=== PATIENT | female | born 1985 | race Caucasian/White ===

== ENCOUNTER 2016-04-08 14:50 | Day surgery (SDC) | payer OTHER ==
[2016-04-08] MEDS ORDERED: Lactated Ringers 1,000 ML PRIMARY IV ONE (15:00)
[2016-04-08] MEDS ORDERED: LIDOCAINE W/ SODIUM BICARB 0.5 ML SYR ONE (15:00)
[2016-04-08] MEDS ORDERED: AMPICILLIN/SULBACTAM 3 GM VIAL IV ONE (15:00)
[2016-04-08] MEDS ORDERED: Sodium Chloride 0.9% 100 ML IV ONE (15:01)
[2016-04-08 15:20] VITALS: RESP 14
[2016-04-08] MEDS ORDERED: fentaNYL Inj 250 MCG/5 ML VIAL ONE (15:29)
[2016-04-08] MEDS ORDERED: MIDAZOLAM 5 MG/1 ML ONE (15:29)
[2016-04-08] MEDS ORDERED: KETAMINE 100 MG/1 ML - 5 ML ONE (15:29)
[2016-04-08] MEDS ORDERED: SUCCINYLCHOLINE CHLORIDE 20 MG/1 ML - 10 ML ONE (15:30)
[2016-04-08] MEDS ORDERED: ROCURONIUM 10 MG/1 ML - 5 ML VIAL IVP ONE (15:31)
[2016-04-08] MEDS ORDERED: LIDOCAINE MPF 2% - 5 ML (20 MG/1 ML) ONE ×2 (15:34→16:29)
[2016-04-08] MEDS ORDERED: BUPIVACAINE 0.5% W/ EPI - 10 ML VIAL ONE (15:38)
[2016-04-08] MEDS ORDERED: DEXAMETHASONE PF 10 MG/1 ML VIAL ONE (16:22)
[2016-04-08] MEDS ORDERED: KETOROLAC 30 MG/1 ML VIAL ONE (16:34)
--- NOTE | 2016-04-08 16:37 | GEN.OPNOTE ---
Operative Note Surgery Date: 04/08/16 Preoperative Diagnosis: Left axillary abscess. Postoperative Diagnosis: Deep left axillary abscess. Complex. Procedure: Incision and drainage of deep and complex left axillary abscess. Surgeon: Dave Hartley MD Anesthesia Provider: Lacie Dominguez CRNA Anesthesia Type: General Estimated Blood Loss (mL): 5 Fluids: 500 mL of crystalloid. 3 g of IV Unasyn at the start of the procedure. 30 mg of IV Toradol at the end of the procedure. Pathology: No specimen to pathology. Cultures were sent. Indications: Left axillary abscess. Findings: Tunneling left axillary abscess. 2 incisions were made and the cavities were connected Complications: None. Operative Summary: The patient was taken to the operating room and placed on an operating table in supine position. Her arm was placed out on an arm board. The axilla was prepped and draped in a sterile fashion. A surgical timeout was done. 2 incisions were made at each end of the abscess cavity. Hemostats were used to break down the loculations. The 2 incisions connected through the subcutaneous tissue. Cultures were taken. Both anaerobic and aerobic cultures were taken. Pulse lavage was used to irrigate out the wound cavities. 3 L of normal saline was used. Hemostasis was assured. 1 inch plain gauze was placed gently into each of the incisions. An appropriate dressing was placed. The patient tolerated all aspects of the procedure well without complication. She was taken to the recovery room in stable condition. All counts were correct. Follow-up will be in my office early next week. She will shower and remove the packing tomorrow. She will go home on pain medicines and antibiotics.
[2016-04-08] MEDS ORDERED: HYDROcodone/IBUPROFEN 7.5 MG/200 MG TABLET PO PRN (16:38)
[2016-04-08] MEDS ORDERED: Ondansetron ODT Tab 8 MG TAB PO PRN (16:42)
[2016-04-08] MEDS ORDERED: HYDROmorphone 2 MG/1 ML IVP PRN (16:42)
[2016-04-08] MEDS ORDERED: NORMAL SALINE 10 ML SYRINGE FLUSH IVP PRN (16:42)
[2016-04-08] MEDS ORDERED: fentaNYL Inj 100 MCG/2 ML VIAL IVP PRN (16:42)
[2016-04-08] MEDS ORDERED: ATROPINE SULFATE 0.4 MG/1 ML VIAL IVP PRN (16:42)
[2016-04-08] MEDS ORDERED: ONDANSETRON 4 MG/2 ML VIAL IVP PRN (16:42)
[2016-04-08 17:29] VITALS: TEMP 98.2
== END 2016-04-08 17:18 | disposition home or self-care (01) ==
LOC: SDSC 14:50
PROVIDERS: ATTEND Surgery
DX: L02.412 Cutaneous abscess of left axilla (principal)
CPT/HCPCS: 10061; 84703; 87070; 87075; 87077; 87186 ×2; 87205; J1885; J2704; J3010; J0295; J0330; J1100; J2001; J2250; J7050; J7120

== ENCOUNTER → 2016-05-28 | Outpatient (CLI) | payer OTHER | LOC: MOB LAB 14:49 | PROVIDERS: ATTEND Physician Assistant Medical | DX: L98.8 Other specified disorders of the skin and subcutaneous tissue (principal); Z22.322 Carrier or suspected carrier of Methicillin resistant Staphylococcus aureus | CPT/HCPCS: 87070; 87077; 87185; 87186; 87205 ==

== ENCOUNTER 2016-09-01 23:05 | Emergency (ER) | payer OTHER ==
[2016-09-01] MEDS ORDERED: Lidocaine 1% 10 MG/ML - 20 ML VIAL SUBCUT ONE (23:23)
[2016-09-01] MEDS ORDERED: Lidocaine Inj 1% 20 ML ONE (23:27)
[2016-09-01] MEDS ORDERED: HYDROcodone-APAP 5 MG -325 MG TABLET PO SCH (23:45)
[2016-09-02 01:08] VITALS: RESP 20; TEMP 98.4
--- NOTE | 2016-09-02 03:40 | PDOC ---
Skin Rash/Insect/Abscess HPI - General Chief Complaint: Integumentary Stated Complaint: ABSCESS UNDER LEFT ARM Date Seen by Provider: 09/01/16 Time Seen by Provider: 23:15 Source: POSITIVE: Patient Exam Limitations: POSITIVE: No limitations Nurse's Notes Reviewed & Considered: Yes - History of Present Illness Initial Comments: The patient is a 30-year-old female. She states that for the past 4-5 days she has had an abscess, subcutaneous, just below the left axilla. Patient states she has a history of recurring abscesses. Patient was seen in the [facility] clinic earlier today and was started on an antibiotic, probably Augmentin, and was advised to apply warm moist compresses to the abscess. An appointment was made for her to see Dr. Hartley, surgeon, on 03 September. Patient states that since being seen in the clinic earlier today she has had increased pain and states that she believes the abscess is getting larger. Have you received a tetanus shot in the past 10 years?: Unknown Body Location Affected: REPORTS: Chest (Left lateral thorax just inferior to the left axilla) Timing: REPORTS: Gradual, Getting Worse Duration: >24 hours (4-5 days) Severity: Moderate Quality: REPORTS: "Pain" Identified Causes: REPORTS: No (History of previous subcutaneous abscesses) Suspected Etiology: DENIES: Antibiotic, Aspirin, NSAID, ROME Inhibitor, Shellfish , Nuts, Soybeans, Eggs, Dairy, Bee/Wasp Sting, Ant Bite, Poison [place], Poison [place] , Infectious Illness, Spider Bite, Insect Bite, Soap, Detergent, Other Similar Symptoms Previously: Yes (history of previous subcutaneous abscesses) Recent Care Received: REPORTS: Recently Seen, Treated by MD (As above) Any Prior Injuries Related to Current Complaint?: No - Patient Home Medications Home Medications: Home Medications Levonorgestrel [Mirena] 1 each IY 5 years 09/07/12 Buspirone HCl 1 tab PO BID #60 tab 07/02/16 Amoxicillin/Potassium Clav [Augmentin 875-125 Tablet] 1 tab PO Q12H #20 tab HYDROcodone/APAP 10/325 Tab [[place] 10/325 Tab] 1 tab PO Q4H PRN #20 tab Sertraline HCl [Zoloft] 25 mg PO DAILY 09/01/16 - Patient Allergies Allergies/Adverse Reactions: Allergies Allergy/AdvReac Type Severity Reaction Status Date / Time No Known Drug Allergies Allergy NOT Verified 09/01/16 23:13 APPLICABLE Past Medical History - heen HEENT History: Denies History Cardiovascular History: Denies History Respiratory History: Denies History Gastrointestinal History: Denies History Genitourinary History: Denies History Endocrine History: Denies History Musculoskeletal History: Denies History Prosthesis or Implant: No Neurological History: Denies History Blood Disorders: Denies History Psychiatric History: Depression, Anxiety Disorders History of Sexually Transmitted Diseases: No Cancer History: Denies History In Past Year Been Physically Harmed or Verbally Threatened: No History of MDRO: No History of Other Communicable Diseases: No Tobacco Use: Current Every Day Smoker Alcohol Use: Occasionally Substance Use Type: None Previous Surgical History: No Significant Family History: Diabetes Past Medical History Reviewed: Reviewed - No Changes ROS - Limitations ROS Limitations: No Limitations Constitution: REPORTS: Denies Symptoms Cardiovascular: REPORTS: Denies Cardiac Symptoms Respiratory: REPORTS: Denies Resp Symptoms Neurological: REPORTS: Denies Neuro Symptoms Gastrointestinal: REPORTS: Denies GI Symptoms Endocrine: REPORTS: Denies Symptoms Musculoskeletal: REPORTS: Denies MS Symptoms Genitourinary: REPORTS: Denies Symptoms Eyes: REPORTS: Denies Symptoms ENT: REPORTS: Denies Symptoms Skin: REPORTS: Other (Subcutaneous abscess just inferior to the left axilla; see diagram.) Lympathic: REPORTS: Denies Lympathic Symptoms Immunologic: POSITIVE: Denies Symptoms Psychiatric: POSITIVE: Denies Psych Symptoms Skin Rash/Insect/Abscess Exam - General Appearance General Appearance: REPORTS: Alert, Cooperative, No Acute Distress, No Evidence of Trauma - Skin Skin: REPORTS: Abscess, Tender Indurated Area, Pointing, Fluctuant, Wtih Erythema Skin Location: REPORTS: Trunk (See diagram) Skin Character: REPORTS: Asymmetric Skin Symptoms: REPORTS: Warmth, Tenderness, Swelling, Induration - Extremities Extremity: Non-Tender: (All Extremities), Normal ROM: (All Extremities), Normal Inspection: (All Extremities) - Neck Neck: REPORTS: Trachea Midline, No Swelling - Respiratory Respiratory: REPORTS: No Respiratory Distress, Breath Sounds Normal - Cardiovascular Cardiovascular: REPORTS: Regular Rate and Rhythm, Heart Sounds Normal, Equal Pulses, Strong Pulses Peripheral Pulses: Radial (R): 2+, Radial (L): 2+ - Abdomen Abdomen: Soft: (All Quadrants), Normal Bowel Sounds: (All Quadrants), Denies Tenderness: (All Quadrants), No Splenomegaly: (All Quadrants), No Hepatomegaly: (All Quadrants), No Guarding: (All Quadrants), No Rebound: (All Quadrants), No Palpable Pulse: (All Quadrants), No Palpabale Mass: (All Quadrants), No Distention: (All Quadrants), No Rigidity: (All Quadrants) - Neurological / Psychological Neurological: REPORTS: Oriented X3, 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, Motor Normal, Sensation Normal, 5, 6 Procedures - Incision and Drainage Site: left lateral thorax just inferior to left axilla Skin Prep: Betadine Prep, Sterile Field Maintained, Sterile Drapes Applied, Sterile Dressing Applied Local Anesthesia Used - Indicate Amt Used in Comment: Lidocaine 1%: Yes Blade Size: 15 I & D Procedure: betadine prep, sterile drapes applied, sterile dressing applied , gauze wick placed I&D Treatment: Purulent Drainage, Small Amount, Probed to Brk Loculations, Packed w/ Gauze, Obtained Cultures Images - Body Body: 1 - Abscess Skin Rash/Abscess Progress - Patient's Progress Pain Medication Addressed: POSITIVE: Yes (Hydrocodone/APAP) Re-Examine Time:: 23:45 Re-Examine Comment: After local anesthesia with 1% lidocaine abscess was incised and drained and cultures taken. Moderate amount of purulent fluid obtained. Quarter-inch Nu Gauze packing placed, followed by sterile dressing. Patient to follow-up in the surgery clinic the day after tomorrow, as is already arranged. Status: POSITIVE: Improved, Re-Examined - Consult Counseled: POSITIVE: Patient, RE: DX, RE: Need for F/U Patient Care Time - Estimated PCT Patient Care Time (In Minutes): 30 Vital Signs - Recent Vital Signs Vital Signs: Vital Signs (Last 8 hours) Temp Pulse Resp BP Pulse Ox 09/01/16 23:06 98.4 F 103 H 20 120/97 96 - VS Reviewed Vital Signs Reviewed: Yes Discharge Clinical Impression: Abscess Discharge Disposition: Discharged to Home Condition: Stable Prescriptions / Orders: HYDROcodone/APAP 10/325 Tab [[place] 10/325 Tab] 1 tab PO Q4H PRN #20 tab PRN Reason: Pain Patient Instructions Given at Discharge: Abscess Incision and Drainage (ED) Additional Instructions: Continue the medication that was prescribed for you at the clinic. Hydrocodone/ APAP, one every 4 hours as necessary for pain. Follow-up in the surgery clinic the day after tomorrow, as he is already arranged. They will probably want to change the packing that was placed in the abscess at that time. Return here anytime as necessary. Follow Up With: NONE,NONE [Primary Care Provider] - (Instructions as above. Follow-up in the surgery clinic on September 03 as is already arranged. Pain medication as above. Return here as necessary.)
== END 2016-09-02 00:12 | disposition home or self-care (01) ==
LOC: ER 23:05
DX: L02.412 Cutaneous abscess of left axilla (principal); Z72.0 Tobacco use
CPT/HCPCS: 10060; 99282; J2001

== ENCOUNTER 2016-09-04 09:42 | Day surgery (SDC) | payer OTHER ==
[~2016-09-04 09:42] MED LIST: Clindamycin 900mg (Premix) 50 ML IV ONE; LIDOCAINE W/ SODIUM BICARB 0.5 ML SYR ONE; Lactated Ringers 1,000 ML PRIMARY IV ONE
[2016-09-04 10:00] LABS: URINE SPECIFIC GRAVITY - MAN 1.022
[2016-09-04] MEDS ORDERED: SODIUM BICARBONATE 8.4% - 50 ML VIAL ONE (10:23)
[2016-09-04] MEDS ORDERED: LIDOCAINE HCL 1%/EPI 1:100,000 - 20 ML VIAL ONE (10:23)
[2016-09-04] MEDS ORDERED: IPRATROPIUM/ALBUTEROL SULFATE 3 ML NEB NEB ONE (10:36)
[2016-09-04] MEDS ORDERED: fentaNYL Inj 250 MCG/5 ML VIAL ONE (10:46)
[2016-09-04] MEDS ORDERED: MIDAZOLAM 5 MG/1 ML ONE (10:46)
[2016-09-04] MEDS ORDERED: LIDOCAINE MPF 2% - 5 ML (20 MG/1 ML) ONE (10:49)
[2016-09-04] MEDS ORDERED: SUCCINYLCHOLINE CHLORIDE 20 MG/1 ML - 10 ML ONE (10:50)
[2016-09-04] MEDS ORDERED: DEXAMETHASONE PF 10 MG/1 ML VIAL ONE (11:16)
[2016-09-04] MEDS ORDERED: NORMAL SALINE 10 ML SYRINGE FLUSH IVP PRN (11:27)
[2016-09-04] MEDS ORDERED: fentaNYL Inj 100 MCG/2 ML VIAL IVP PRN (11:27)
[2016-09-04] MEDS ORDERED: KETOROLAC 15 MG/1 ML VIAL IVP PRN (11:27)
[2016-09-04] MEDS ORDERED: Ondansetron ODT Tab 8 MG TAB PO PRN (11:27)
[2016-09-04] MEDS ORDERED: HYDROmorphone 2 MG/1 ML IVP PRN (11:27)
[2016-09-04] MEDS ORDERED: ATROPINE SULFATE 0.4 MG/1 ML VIAL IVP PRN (11:27)
[2016-09-04] MEDS ORDERED: ONDANSETRON 4 MG/2 ML VIAL IVP PRN (11:27)
[2016-09-04] MEDS ORDERED: Lactated Ringers 1,000 ML PRIMARY IV SCH (11:30)
--- NOTE | 2016-09-04 11:46 | GEN.OPNOTE ---
Operative Note Surgery Date: 09/04/16 Preoperative Diagnosis: Left chest wall abscess. Axillary abscesses 2. Postoperative Diagnosis: Same Procedure: #1 incision and drainage of left chest wall abscess. #2 incision and drainage of axillary abscess 2. Surgeon: Dave Hartley MD Anesthesia Provider: Lacie Dominguez CRNA Anesthesia Type: General Estimated Blood Loss (mL): 5 Fluids: 1000 mL of crystalloid. 900 mg of IV clindamycin at the start of the procedure. Pathology: No specimen sent. Indications: Patient with recurring axillary abscesses. Patient has also had a large abscess out of her axilla on the chest wall on the left. The chest wall abscess had been incised and drained in the emergency room but there was still large amount of purulent drainage as well as induration and fluctuance.. Further opening needed to be performed. Findings: Abscesses 3 Complications: None. Operative Summary: Patient was taken to the operating suite and placed on the operating table in the supine position. Her arm was placed on an arm board. Following the induction of general anesthetic the axilla and chest wall were prepped and draped in a sterile fashion. A surgical timeout was done. The 2 smaller axillary abscesses were incised and drained. I actually excised some thickened necrotic tissue from both of these. Hemostasis was assured. Pulse lavage was used to irrigate the wounds. Small piece of half inch gauze wick was placed into the wound and a dressing was applied. Attention was turned to the chest wall abscess. There is approximately a half- inch incision. I inserted a clamp and extended the incision to approximately 2 inches. This unroofed the entire cavity. Hemostat was used to break down any loculations. Pulse lavage was used to irrigate out the wound. Half inch gauze was gently packed into the wound and an appropriate dressing was placed. Patient tolerated the procedure well without complication. She was taken to recovery room in stable condition. All counts were correct.
[2016-09-04] MEDS ORDERED: HYDROcodone-APAP 5 MG -325 MG TABLET PO PRN (11:50)
[2016-09-04] MEDS ORDERED: KETOROLAC 15 MG/1 ML VIAL IVP SCH (12:00)
[2016-09-04 12:01] VITALS: RESP 17
[2016-09-04] MEDS ORDERED: KETAMINE 100 MG/1 ML - 5 ML ONE (14:00)
[2016-09-04 14:04] VITALS: TEMP 98.3
== END 2016-09-04 12:47 | disposition home or self-care (01) ==
LOC: SDSC 09:42
PROVIDERS: ATTEND Surgery
DX: L02.412 Cutaneous abscess of left axilla (principal); Z86.14 Personal history of Methicillin resistant Staphylococcus aureus infection
CPT/HCPCS: 10061; 84703; 94640; J2704; J3010; J7620; J0330; J1100; J2001; J2250; J3490; J7120

== ENCOUNTER 2018-10-03 00:03 | Inpatient (IN) ==
[~2018-10-03 00:03] MED LIST changes: -Clindamycin 900mg (Premix) 50 ML IV ONE; -LIDOCAINE W/ SODIUM BICARB 0.5 ML SYR ONE; -Lactated Ringers 1,000 ML PRIMARY IV ONE; +Lactated Ringers 2,000 ML PRIMARY IV ONE; +Misoprostol Tab 100 MCG TAB ONE
[2018-10-03] MEDS ORDERED: ePHEDrine Inj 50 MG/ML AMP IVP PRN (00:49)
[2018-10-03] MEDS ORDERED: BUTORPHANOL TARTRATE 2 MG/1 ML VIAL IVP PRN (00:49)
[2018-10-03] MEDS ORDERED: Lidocaine 1% 10 MG/ML - 20 ML VIAL SUBCUT PRN (00:49)
[2018-10-03] MEDS ORDERED: CALCIUM CARBONATE 500 MG (TUMS) CHEWABLE TABLET PO PRN (00:49)
[2018-10-03] MEDS ORDERED: CITRIC ACID/SODIUM CITRATE 30 ML CUP PO PRN (00:49)
[2018-10-03] MEDS ORDERED: diphenhydrAMINE 50 MG/1 ML VIAL IVP PRN (00:49)
[2018-10-03] MEDS ORDERED: TERBUTALINE SULFATE 1 MG/1 ML SDV SUBCUT PRN (00:49)
[2018-10-03] MEDS ORDERED: FAMOTIDINE 20 MG/2 ML VIAL IVP PRN ×2 (00:49)
[2018-10-03] MEDS ORDERED: MISOPROSTOL 200 MCG TABLET RECTAL PRN (00:49)
[2018-10-03] MEDS ORDERED: NALOXONE 0.4 MG/1 ML VIAL IVP PRN (00:49)
[2018-10-03] MEDS ORDERED: Metoclopramide Inj 10 MG/2 ML VIAL IV PRN (00:49)
[2018-10-03] MEDS ORDERED: Phenylephrine Inj 50 MCG in Sodium Chloride 0.9% vial 0.5 ML IVP PRN (00:49)
[2018-10-03] MEDS ORDERED: fentaNYL Inj 100 MCG/2 ML VIAL IV PRN (00:49)
[2018-10-03] MEDS ORDERED: Carboprost Inj 250 MCG/ML AMP IM PRN (00:49)
[2018-10-03] MEDS ORDERED: ONDANSETRON 4 MG/2 ML VIAL IVP PRN (00:49)
[2018-10-03] MEDS ORDERED: LIDOCAINE W/ SODIUM BICARB 0.5 ML SYR SUBD PRN (00:49)
[2018-10-03] MEDS ORDERED: Nalbuphine Inj 20 MG/ML Ampule IVP PRN (00:49)
[2018-10-03] MEDS ORDERED: Naloxone Inj 0.01 MG in Sodium Chloride 0.9% vial 1 ML IVP PRN (00:49)
[2018-10-03] MEDS ORDERED: CefOXitin Inj 2 GM in Sodium Chloride 0.9% 100 ML IV PRN (00:49)
[2018-10-03] MEDS ORDERED: OXYTOCIN 10 UNIT/1 ML IM PRN (00:49)
[2018-10-03] MEDS ORDERED: METHYLERGONOVINE MALEATE 0.2 MG/1 ML VIAL IM PRN (00:49)
[2018-10-03] MEDS ORDERED: LIDOCAINE HCL 2 % 10 ML JELLY URO-JECT TOPICAL PRN (00:49)
[2018-10-03] MEDS ORDERED: Oxytocin 20 Units + LR 20 UNIT/1,000 ML BAG IV SCH ×2 (01:00→07:30)
[2018-10-03] MEDS: Lactated Ringers-OB Dept 1,000 ML PRIMARY IV SCH ×2 (01:39→20:18)
[2018-10-03 01:42] LABS: Hemoglobin [HGB] 11.7 g/dL (12.0-16.0); MEAN CORPUSCULAR HEMOGLOBIN 32.5 PG (27-31); MEAN CORPUSCULAR HGB CONC 34.4 g/dL (33-37); MEAN CORPUSCULAR VOLUME 94.4 FL (81-99); RED BLOOD COUNT 3.6 10^6/uL (4.20-5.40)
[2018-10-03] MEDS: Misoprostol Tab 100 MCG TAB VAGINAL SCH (01:57)
[2018-10-03 07:59] LABS: AMPHETAMINE SCREEN NEGATIVE (NEG); CANNABINOID SCREEN,URINE NEGATIVE (NEG); COCAINE SCREEN NEGATIVE (NEG); METHADONE URINE SCREEN NEGATIVE (NEG); METHAMPHETAMINES SCREEN,URINE NEGATIVE (NEG); OPIATE SCREEN,URINE NEGATIVE (NEG); TRICYCLIC ANTIDEPRESSANT,URINE NEGATIVE (NEG); URINE SPECIFIC GRAVITY - MAN 1.017
[2018-10-03 08:00] LABS: URINE SAMPLE TYPE VOIDED SPECIMEN
[2018-10-03 09:18] LABS: Hematocrit [HCT] 35.8 % (37.0-47.0); Hemoglobin [HGB] 12.3 g/dL (12.0-16.0); MEAN CORPUSCULAR HEMOGLOBIN 32.4 PG (27-31); MEAN CORPUSCULAR HGB CONC 34.4 g/dL (33-37); MEAN CORPUSCULAR VOLUME 94.2 FL (81-99); MEAN PLATELET VOLUME 9.7 FL (7.4-12.2); RED BLOOD COUNT 3.8 10^6/uL (4.20-5.40)
[2018-10-03 09:29] LABS: BLOOD UREA NITROGEN 10 mg/dL (7-22); SERUM ALBUMIN 2.9 g/dL (3.5-4.8); Uric Acid 4.4 mg/dl (2.5-6.2)
--- NOTE | 2018-10-03 10:28 | OB.PROGRES ---
Date of Service: 10/03/18 Time of Service: 07:45 Interval History: 32 yo at 40 1/7 weeks gestation admitted just after midnight for elective IOL. complicated by tobacco use, obesity. She did have a BHATTI a couple of weeks ago with associated increased edema but pressures have been ok and 24 hour urine protein was normal. OB Hx - 09/19/07 - 6lb baby boy Raul at 40 0/7 weeks gestation. 5 hours of labor, no epidural, in [place] 08/30/08 - 6 lba 0.5oz baby boy Nikolai at 38 weeks gestation vaginally, no epidural. Did require pitocin augmentation. Denies h/o gdm, elevated pressures, or any issues. 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, MRSA abscess, Anxiety/depression PSH - breast abscess I&D SH - tobacco use, current 1/2 PPD x12 years, remote h/o ivdu FH - father , T1DM Objective - Cervical Exam Cervical Exam: 3-460/-2 [place]: q2-5mins Heart Rate: baseline 135, mod chris, accels, no decels Heart Rate Interpretation Category: Category I - Labs CBC and BMP: 10/03/18 08:34 10/03/18 09:15 - Vital Signs Last Taken Vital Signs: Vital Signs - Last Taken Temperature 98.6 F 10/03/18 06:30 Pulse Rate 75 10/03/18 07:00 Respiratory Rate 18 10/03/18 05:30 Blood Pressure 132/74 10/03/18 08:00 Pulse Ox 93 10/03/18 05:30 Assessment and Plan - Patient Problems (1) Term Current Visit: Yes Status: Acute Code(s): Z34.90 - Encounter for supervision of normal , unspecified, unspecified trimester Support Text: 32 yo at 40 1/7 weeks gestation admitted last night for elective IOL. Good cervical ripening with cytotec. Proceed with pitocin and increase as appropriate. MMR equivocal, will need MMR. GBS negative. Rh positive.
[2018-10-03] MEDS ORDERED: diphenhydrAMINE 25 MG CAPSULE PO PRN (12:17)
--- NOTE | 2018-10-03 18:36 | OB.PROGRES ---
Date of Service: 10/03/18 Time of Service: 18:28 Interval History: Patient feels like her contractions have spaced out and less painful. Objective - Cervical Exam Cervical Exam: 4-5/60/-2, AROM clear fluid, IUPC placed [place]: q4 mins Heart Rate: baseline 135/mod chris/accels/no decels Heart Rate Interpretation Category: Category I - Labs CBC and BMP: 10/03/18 08:34 10/03/18 09:15 - Vital Signs Last Taken Vital Signs: Vital Signs - Last Taken Temperature 98.5 F 10/03/18 15:45 Pulse Rate 78 10/03/18 17:00 Respiratory Rate 20 10/03/18 17:00 Blood Pressure 128/79 10/03/18 17:45 Pulse Ox 85 10/03/18 15:45 Assessment and Plan - Patient Problems (1) Term Current Visit: Yes Status: Acute Code(s): Z34.90 - Encounter for supervision of normal , unspecified, unspecified trimester Support Text: 32 yo at 40 1/7 week gestation here for elective IOL. We did have a couple of emergencies this morning so AROM was delayed, but just completed. Clear fluid. Will titrate pitocin accordingly. Continue close observation. GBS negative. Would like to avoid epidural..
[2018-10-03] MEDS ORDERED: Lidocaine/Epi Inj 1.5% 5 ML AMPUL EPIDURAL ONE (20:13)
[2018-10-03] MEDS ORDERED: Fent/Bupiv 2mcg/0.0625% Epid 250 ML ONE (20:18)
--- NOTE | 2018-10-03 20:47 | CRNA.PROCE ---
Central Neuraxis Block Placemt - - Type of Block: Epidural Reason for Block: Analgesia Moniters Used During Block: SPO2, NIBP Skin Prep Used: ChloroPrep Spinal Needle Used: 18 Hustead 80 mm Local Anesthetic - Enter Amount Used in Comment Field: 1.5 % Xylocaine with Epinephrine 1:200,000 (mL): Yes (5ml) Number of Centimeters Catheter Threaded: 4 Bioclusive Dressing Applied: Yes Anesthesia Time - Other Weight: 144.696 kg Height: 5 ft 5 in Body Mass Index (BMI): 53.1
--- NOTE | 2018-10-03 20:48 | CRNA.PROGR ---
Anesthesia Time - Procedure/Recovery Time Start Date: 10/03/18 Anesthesia : Time In: 20:15 - Other Weight: 144.696 kg Height: 5 ft 5 in Body Mass Index (BMI): 53.1 Physical Status: P2 Anesthesia Type: Epidural Obstetrics: Planned vaginal delivery w/ neuraxial labor anesthesia/analog
[2018-10-03] MEDS ORDERED: fentaNYL 2 MCG/BUPIVACAINE 0.0625%/NS 0.9% 250 ML BAG EPIDURAL SCH (21:00)
--- NOTE | 2018-10-04 01:00 | OB.PROGRES ---
Date of Service: 10/04/18 Time of Service: 00:39 Interval History: Patient had an epidural placed around 1800, is more comfortable now. I was called in because she has progressed slowly since 8 cm. With maternal repositioning, uterine hyperstimulation has been noted with associated decelerations. Patient is feeling some pressure but overall comfortable. Objective - Cervical Exam Cervical Exam: /-1 [place]: q2-4 mins Heart Rate: baseline 140/mod variability/accels/early decels Heart Rate Interpretation Category: Category II - Labs CBC and BMP: 10/03/18 08:34 10/03/18 09:15 - Vital Signs Last Taken Vital Signs: Vital Signs - Last Taken Temperature 98.6 F 10/03/18 20:50 Pulse Rate 74 10/03/18 22:20 Respiratory Rate 18 10/03/18 20:50 Blood Pressure 131/49 10/03/18 20:50 Pulse Ox 94 10/03/18 22:20 Assessment and Plan - Patient Problems (1) Term Current Visit: Yes Status: Acute Code(s): Z34.90 - Encounter for supervision of normal , unspecified, unspecified trimester Support Text: 32 yo at 40 2/7 weeks gestation, elective IOL -Now with some descent, will continue to observe closely -GBS negative -MMR equivocal, will need MMR
--- NOTE | 2018-10-04 03:01 | OB.DEL.SUM ---
Delivery Note Delivery Summary: 32 yo G3 now P3 was admitted just after midnight yesterday for elective IOL at 40 1/7 weeks gestation. She was given one dose of cytotec pv with good cervical ripening. She was then started on pitocin. We had a couple of urgent situations on L&D today so AROM was delayed until after 5pm, IUPC placed and pitocin t itrated to adequate contractions. She progressed slowly to complete with recurrent early decelerations and did not tolerate position changes as those resulted in uterine hyperstimulation and decelerations. Once complete, I was barely able to get gloves on and she delivered via normal vaginal delivery a TAGA male infant in OA position over an intact perineum with epidural anesthesia. No nuchal cord was noted. His head, shoulders and body delivered easily. Infant was placed on mom's abdomen. Cord clamping was delayed 1 minute. Cord was doubly clamped and cut by father. Her placenta delivered spontaneously, intact, with 3-vessel cord. Her perineum and vagina was inspected and notable only for a small L periuretheral laceration that was hemostatic and did not require repair. EBL 200 cc. Apgars 9, 9. 7 lb 4.1 ozs. - Patient Problems (1) Term Current Visit: Yes Status: Acute Code(s): Z34.90 - Encounter for supervision of normal , unspecified, unspecified trimester
[2018-10-04] MEDS ORDERED: MMR VACCINE 12500 UNIT/0.5 ML SUBCUT ONE ×2 (03:05→15:30)
[2018-10-04] MEDS ORDERED: Oxytocin 20 Units + LR 20 UNIT/1,000 ML BAG IV SCH (04:03)
[2018-10-04] MEDS ORDERED: GLYCERIN/WITCH HAZEL 1 BOX TOPICAL PRN (04:03)
[2018-10-04] MEDS ORDERED: Ondansetron ODT Tab 4 MG TAB PO PRN (04:03)
[2018-10-04] MEDS ORDERED: Lidocaine 1% 10 MG/ML - 20 ML VIAL INTRADERM PRN (04:03)
[2018-10-04] MEDS ORDERED: Nalbuphine Inj 20 MG/ML Ampule IVP PRN (04:03)
[2018-10-04] MEDS ORDERED: ONDANSETRON 4 MG/2 ML VIAL IVP PRN (04:03)
[2018-10-04] MEDS ORDERED: CALCIUM CARBONATE 500 MG (TUMS) CHEWABLE TABLET PO PRN (04:03)
[2018-10-04] MEDS ORDERED: diphenhydrAMINE 25 MG CAPSULE PO PRN (04:03)
[2018-10-04] MEDS ORDERED: diphenhydrAMINE 50 MG/1 ML VIAL IVP PRN (04:03)
[2018-10-04] MEDS ORDERED: BENZOCAINE/MENTHOL SPRAY 56 GM BOTTLE TOPICAL PRN (04:03)
[2018-10-04] MEDS ORDERED: LIDOCAINE HCL 2 % 10 ML JELLY URO-JECT TOPICAL PRN (04:03)
[2018-10-04] MEDS ORDERED: ACETAMINOPHEN 325 MG TABLET PO PRN (04:03)
[2018-10-04] MEDS ORDERED: LANOLIN HPA 40 GM TUBE TOPICAL PRN (04:03)
[2018-10-04 06:04] VITALS: RESP 18
--- NOTE | 2018-10-04 12:16 | CRNA.PROGR ---
Anesthesia Note - Progress Notes Anesthesia Progress Note: Post Epidural visit Pt is up and moving, up restroom and ambulating. She states that the epidural worked for the duration of labor, it was DC'd by nursing. She denies any residual problems from the labor epidural. Current VS are stable. Vital Signs - Last Taken Temperature 98.4 F 10/04/18 09:10 Pulse Rate 83 10/04/18 09:10 Respiratory Rate 18 10/04/18 09:10 Blood Pressure 151/69 10/04/18 09:10 Pulse Ox 92 10/04/18 09:10
[2018-10-04] MEDS: IBUPROFEN 800 MG TABLET PO PRN ×2 (13:19→20:13)
[2018-10-05 05:32] LABS: Hematocrit [HCT] 34.1 % (37.0-47.0); Hemoglobin [HGB] 11.3 g/dL (12.0-16.0); MEAN CORPUSCULAR HGB CONC 33.1 g/dL (33-37); MEAN CORPUSCULAR VOLUME 96.6 FL (81-99); MEAN PLATELET VOLUME 10.1 FL (7.4-12.2); RED BLOOD COUNT 3.53 10^6/uL (4.20-5.40)
[2018-10-05] MEDS: Misoprostol Tab 100 MCG TAB VAGINAL SCH (07:13)
[2018-10-05] MEDS: Lactated Ringers-OB Dept 1,000 ML PRIMARY IV SCH ×2 (07:13→07:55)
[2018-10-05] MEDS ORDERED: Prenatal Multivitamin Tab 1 TAB TAB PO SCH (09:00)
[2018-10-05] MEDS ORDERED: DOCUSATE 100 MG CAPSULE PO SCH (09:00)
[2018-10-05 09:52] VITALS: TEMP 98
[2018-10-05] MEDS: IBUPROFEN 800 MG TABLET PO PRN (09:52)
[2018-10-05 10:12] VITALS: BP 126/98; O2SAT 95
--- NOTE | 2018-10-05 15:56 | DCSUMMARY ---
Hospitalization Summary Admit Date: 10/03/18 Discharge Date: 10/05/18 Primary Diagnosis:: s/p Delivery Type: Vaginal Hospital Course: 32 yo G3 now P3 admitted at 40 1/7 weeks gestation for elective IOL. Delivered almost 26 hours later via after cervical ripening with cytotec, then pitocin. AROM was delayed 2/2 several urgent situations on L&D. After AROM she progressed, slowly albeit to complete then progressed rapidly through the second stage of labor delivering a 7 lb 4.1 oz baby boy. Apgars 9,9. Mom had a small L periurethral laceration that was hemostatic and didn't require repair. Infnat did require a short course of bubble cpap to help transition. / Postop Complications: none apparent [place] Complications: Respiratory distress that resolved quickly Exam - Vitals Vital Signs: Vital Signs Temperature 98 F Temperature Source Oral Pulse Rate [Pulse Oximeter 73 Right] Pulse Rate [Left Hand] 74 Pulse Rate 82 Respiratory Rate 18 Blood Pressure [Right Arm] 126/98 Blood Pressure 101/82 Pulse Ox [Left Hand] 94 Pulse Ox 95 Oxygen Flow Rate 10 Oxygen Delivery Method [Left Room Air Hand] Oxygen Delivery Method Room Air Height 5 ft 5 in Weight 319 lb - General General Appearance: No Acute Distress, Cooperative - Respiratory Respiratory Exam: POSITIVE: Clear to Auscultation - Bilaterally, Breathing Non Labored - Cardiovascular Cardiovascular Exam: POSITIVE: RRR - GI/Abdominal GI/Abdominal Exam: POSITIVE: Normal Bowel Sounds - Psychiatric Psychiatric Exam: POSITIVE: Normal Affect, Normal Mood - Integumentary Integumentary Exam: POSITIVE: Normal Color Data Peritnent Studies: 10/03/18 10/05/18 08:34 04:51 WBC 12.85 H 11.79 H Hgb 12.3 11.3 L Hct 35.8 L 34.1 L Plt Count 264 263 Patient Problems - Patient Problem List (1) Term Status: Acute Code(s): Z34.90 - Encounter for supervision of normal , unspecified, unspecified trimester Support Text: 32 yo G3 now P3 s/p -Pain well controlled, moderate lochia -Breast feeding, milk not in but baby is more interested and latching better today -Plans to do mirena for pp contraception -MMR was given -Routine pp precautions discussed. -F/u with me 8 weeks pp Category: Medical
== END 2018-10-05 13:35 | disposition home or self-care (01) | DRG 807 ==
LOC: OBOP 00:03 → OBIP 00:57
PROVIDERS: ADMIT Student in an Organized Health Care Education/Training Program; ATTEND Student in an Organized Health Care Education/Training Program